=== PATIENT | female | born 1965 | race Caucasian/White ===

== ENCOUNTER 2021-05-15 22:04 | Emergency (ER) | payer OTHER ==
[2021-05-15 22:18] VITALS: BP 118/83; PULSE 76; TEMP 97.7; BMI 24.5
== END 2021-05-16 01:11 | disposition home or self-care (01) ==
LOC: JER 22:04
PROC: 0HQ1XZZ Repair Face Skin, External Approach (ICD-10-PCS; principal; 2021-05-15)
DX: S01.81XA Laceration without foreign body of other part of head, initial encounter (principal); W01.0XXA Fall on same level from slipping, tripping and stumbling without subsequent striking against object, initial encounter
CPT/HCPCS: 99282-25